=== PATIENT | male | born 1970 | race Caucasian/White ===

== ENCOUNTER 2020-09-05 12:09 | Emergency (ER) | payer MEDICARE, MEDICAID ==
[~2020-09-05] VITALS: Ht 172.7 cm; Wt 90.7 kg
[2020-09-05] MEDS ORDERED: ASA81BEC PO (12:42)
[2020-09-05] MEDS ORDERED: BENZTROPINE MESY2 MG PO (12:42)
[2020-09-05] MEDS ORDERED: COZAAR 25 MG TA25 M2 PO (12:43)
[2020-09-05] MEDS ORDERED: HALOPERIDOL 5 MG5 MG PO (12:43)
[2020-09-05] MEDS ORDERED: JARDIANCE10 MG PO (12:43)
[2020-09-05] MEDS ORDERED: IRON325 M1 PO (12:43)
[2020-09-05] MEDS ORDERED: CALCITONIN-SAL3.7 ML NASAL (12:43)
[2020-09-05 14:04] VITALS: BP 129/84
== END 2020-09-05 14:20 | disposition home or self-care (01) ==
LOC: M.ERS 12:09
DX: Z20.828 Contact with and (suspected) exposure to other viral communicable diseases (principal); J44.9 Chronic obstructive pulmonary disease, unspecified; K21.9 Gastro-esophageal reflux disease without esophagitis; F17.210 Nicotine dependence, cigarettes, uncomplicated; Z79.82 Long term (current) use of aspirin; Z79.899 Other long term (current) drug therapy

== ENCOUNTER 2020-09-15 17:17 | Emergency (ER) | payer MEDICARE, MEDICAID ==
[~2020-09-15] VITALS: Ht 172.7 cm; Wt 90.7 kg
[~2020-09-15 17:17] MED LIST: ASA81BEC PO; BENZTROPINE MESY2 MG PO; CALCITONIN-SAL3.7 ML NASAL; COZAAR 25 MG TA25 M2 PO; HALOPERIDOL 5 MG5 MG PO; IRON325 M1 PO; JARDIANCE10 MG PO
[2020-09-15 18:39] VITALS: BP 130/78
== END 2020-09-15 18:58 | disposition home or self-care (01) ==
LOC: M.ERS 17:17
DX: Z20.828 Contact with and (suspected) exposure to other viral communicable diseases (principal); J44.9 Chronic obstructive pulmonary disease, unspecified; K21.9 Gastro-esophageal reflux disease without esophagitis; Z79.82 Long term (current) use of aspirin; Z79.899 Other long term (current) drug therapy